=== PATIENT | female | born 2000 | race African-American/Black ===

== ENCOUNTER 2020-09-03 08:19 | Emergency (ER) | payer OTHER ==
[~2020-09-03] VITALS: Ht 162.6 cm; Wt 54.0 kg
[2020-09-03 08:20] VITALS: BP 107/68
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
== END 2020-09-03 10:40 | disposition home or self-care (01) ==
LOC: ER 08:19
DX: R51.9 Headache, unspecified (principal); G89.11 Acute pain due to trauma; V49.59XA Passenger injured in collision with other motor vehicles in traffic accident, initial encounter; Y92.488 Other paved roadways as the place of occurrence of the external cause; Y93.89 Activity, other specified; Y99.8 Other external cause status
CPT/HCPCS: 70450; 81025; 99284-25